=== PATIENT | female | born 1935 | race Caucasian/White ===

== ENCOUNTER 2016-07-02 07:27 | Inpatient (IN) | payer MEDICARE ==
[2016-07-02] VITALS (10 sets, daily range): BP systolic 98–142; BP diastolic 52–86
[~2016-07-02] VITALS: Ht 142.2 cm; Wt 100.0 kg
[~2016-07-02 07:27] MED LIST: ACETAMIN325 MG PO; ADLT ASA LOW81 MG PO; ARTANE2 MG PO; CIPROFLOXACN250 MG PO; CRESTOR10 MG PO; FLUOCINONIDE0.05 % EX; FUROSEMIDE40 MG PO; KLOR-CON 1010 ME1 PO; LISINOPRIL40 MG PO; LOPRESSOR 550 MG/TAB PO; METOPROLOL TART50 MG PO; MOTRIN200 MG PO; SPIRONOLACT25 MG PO; TRIHEXYPHENIDYL2 MG PO; XARELTO15 MG PO; ZOCOR10 MG PO
[2016-07-02 07:57] LABS: HEMATOCRIT 44.7 % (37.0-47.0); HEMOGLOBIN 14.1 g/dl (12.0-16.0); IMMATURE GRANULOCYTES 0.6 % (0.0-1.0); MEAN CELL VOLUME 95.7 fL CALC (80.0-100.0); MEAN CORPUSCULAR HGB 30.2 pG CALC (26.0-32.0); MEAN CORPUSCULAR HGB CONC 31.5 g/L CALC (32.0-36.0); NEUT# 9.58 thou/uL (2.00-7.15); RED BLOOD COUNT 4.67 mill/uL (4.20-5.60); RED CELL DISTRI WIDTH 14.6 % (11.5-15.5)
[2016-07-02] MEDS ORDERED: DIGITEK0.125 M1 PO (08:00)
[2016-07-02] MEDS ORDERED: SPIRONOLACT25 MG PO (08:02)
[2016-07-02] MEDS ORDERED: FUROSEMIDE40 MG PO (08:03)
[2016-07-02] MEDS ORDERED: TRIHEXYPHEN2 MG PO (08:05)
[2016-07-02] MEDS ORDERED: METOPROL TAR25 MG PO (08:06)
[2016-07-02 08:16] LABS: PROTHROMBIN TIME 10.7 SECONDS (9.0-12.5)
[2016-07-02 08:20] LABS: ALBUMIN 4.1 g/dL (3.2-5.0); ALKALINE PHOSPHATASE 77 u/l (38-126); AMYLASE 39 u/l (30-110); ANION GAP 16 (6-22 (CALC)); BUN 18 mg/dL (8-23); BUN/CREATININE RATIO 38 (12-20 (CALC)); CALCIUM 10.1 mg/dL (8.4-10.2); CARBON DIOXIDE 27 mmol/l (22-30); CHLORIDE 104 mmol/l (95-108); CREATININE 0.5 mg/dL (0.5-1.0); GFR > 60 ML/MIN (>=60 (CALC)); GFR FOR AFR.AMER. > 60 ML/MIN (>=60 (CALC)); GLUCOSE 128 mg/dL (82-115); LIPASE 53 u/l (23-300); POTASSIUM 4.3 mmol/l (3.5-5.1); SGOT/AST 16 u/l (9-36); SGPT/ALT 22 u/l (11-66); SODIUM 142 mmol/l (137-146); TOTAL PROTEIN 7.3 g/dL (6.3-8.2)
[2016-07-02 08:33] LABS: MYOGLOBIN 25 ng/mL (0 - 62)
[2016-07-02 09:13] LABS: URINE BILIRUBIN - DIPSTICK NEGATIVE (NEGATIVE); URINE BLOOD DIPSTICK TRACE-INTACT (NEGATIVE); URINE COLOR YELLOW; URINE GLUCOSE - DIPSTICK NEGATIVE (NEGATIVE); URINE KETONE TRACE mg/dL (NEGATIVE); URINE LEUK ESTERASE TRACE (NEGATIVE); URINE NITRITE - DIPSTICK NEGATIVE (Negative); URINE PH 5.5 (4.5-8.0); URINE PROTEIN - DIPSTICK TRACE mg/dL (NEG-TRACE); URINE SPECIFIC GRAVITY >=1.030; URINE UROBILINOGEN - DIPSTICK 0.2 E.U./dL (0.2)
[2016-07-02 09:23] LABS: URINE CLARITY SLIGHT CLOUDY
[2016-07-03] VITALS (12 sets, daily range): BP systolic 99–156; BP diastolic 57–83
[2016-07-03 04:50] LABS: HEMATOCRIT 40.2 % (37.0-47.0); HEMOGLOBIN 13.1 g/dl (12.0-16.0); IMMATURE GRANULOCYTES 0.7 % (0.0-1.0); MEAN CELL VOLUME 95.5 fL CALC (80.0-100.0); MEAN CORPUSCULAR HGB 31.1 pG CALC (26.0-32.0); MEAN CORPUSCULAR HGB CONC 32.6 g/L CALC (32.0-36.0); NEUT# 7.18 thou/uL (2.00-7.15); RED BLOOD COUNT 4.21 mill/uL (4.20-5.60); RED CELL DISTRI WIDTH 13.9 % (11.5-15.5)
[2016-07-03 04:58] LABS: ANION GAP 14 (6-22 (CALC)); BUN 17 mg/dL (8-23); BUN/CREATININE RATIO 38 (12-20 (CALC)); CALCIUM 9.4 mg/dL (8.4-10.2); CARBON DIOXIDE 27 mmol/l (22-30); CHLORIDE 105 mmol/l (95-108); CREATININE 0.4 mg/dL (0.5-1.0); GFR > 60 ML/MIN (>=60 (CALC)); GFR FOR AFR.AMER. > 60 ML/MIN (>=60 (CALC)); GLUCOSE 154 mg/dL (82-115); POTASSIUM 4.2 mmol/l (3.5-5.1); SODIUM 142 mmol/l (137-146)
[2016-07-04] VITALS (10 sets, daily range): BP systolic 91–155; BP diastolic 62–82
[2016-07-04 04:43] LABS: HEMATOCRIT 40.8 % (37.0-47.0); HEMOGLOBIN 12.9 g/dl (12.0-16.0); IMMATURE GRANULOCYTES 0.8 % (0.0-1.0); MEAN CELL VOLUME 96.5 fL CALC (80.0-100.0); MEAN CORPUSCULAR HGB 30.5 pG CALC (26.0-32.0); MEAN CORPUSCULAR HGB CONC 31.6 g/L CALC (32.0-36.0); NEUT# 6.31 thou/uL (2.00-7.15); RED BLOOD COUNT 4.23 mill/uL (4.20-5.60)
[2016-07-04 04:58] LABS: ANION GAP 13 (6-22 (CALC)); BUN 20 mg/dL (8-23); BUN/CREATININE RATIO 43 (12-20 (CALC)); CALCIUM 9.5 mg/dL (8.4-10.2); CARBON DIOXIDE 29 mmol/l (22-30); CHLORIDE 105 mmol/l (95-108); CREATININE 0.5 mg/dL (0.5-1.0); GFR > 60 ML/MIN (>=60 (CALC)); GFR FOR AFR.AMER. > 60 ML/MIN (>=60 (CALC)); GLUCOSE 140 mg/dL (82-115); POTASSIUM 4.3 mmol/l (3.5-5.1); SODIUM 143 mmol/l (137-146)
[2016-07-05 05:57] VITALS: BP 101/71
[2016-07-05 06:06] LABS: HEMATOCRIT 41.4 % (37.0-47.0); IMMATURE GRANULOCYTES 0.8 % (0.0-1.0); MEAN CELL VOLUME 97.4 fL CALC (80.0-100.0); MEAN CORPUSCULAR HGB 30.6 pG CALC (26.0-32.0); MEAN CORPUSCULAR HGB CONC 31.4 g/L CALC (32.0-36.0); NEUT# 5.56 thou/uL (2.00-7.15); RED BLOOD COUNT 4.25 mill/uL (4.20-5.60); RED CELL DISTRI WIDTH 13.9 % (11.5-15.5)
[2016-07-05 06:37] LABS: ANION GAP 13 (6-22 (CALC)); BUN 23 mg/dL (8-23); BUN/CREATININE RATIO 44 (12-20 (CALC)); CALCIUM 9.3 mg/dL (8.4-10.2); CARBON DIOXIDE 28 mmol/l (22-30); CHLORIDE 105 mmol/l (95-108); CREATININE 0.5 mg/dL (0.5-1.0); GFR > 60 ML/MIN (>=60 (CALC)); GFR FOR AFR.AMER. > 60 ML/MIN (>=60 (CALC)); GLUCOSE 114 mg/dL (82-115); POTASSIUM 4.3 mmol/l (3.5-5.1); SODIUM 142 mmol/l (137-146)
[2016-07-05 07:39] VITALS: BP 109/85
[2016-07-05 20:00] VITALS: BP 124/84
[2016-07-06 00:40] VITALS: BP 136/67
[2016-07-06 04:56] VITALS: BP 132/84
[2016-07-06 05:06] LABS: HEMOGLOBIN 13.2 g/dl (12.0-16.0); IMMATURE GRANULOCYTES 0.9 % (0.0-1.0); MEAN CELL VOLUME 97.2 fL CALC (80.0-100.0); MEAN CORPUSCULAR HGB 30.6 pG CALC (26.0-32.0); MEAN CORPUSCULAR HGB CONC 31.4 g/L CALC (32.0-36.0); NEUT# 5.26 thou/uL (2.00-7.15); RED BLOOD COUNT 4.32 mill/uL (4.20-5.60); RED CELL DISTRI WIDTH 13.6 % (11.5-15.5)
[2016-07-06 05:15] LABS: ANION GAP 11 (6-22 (CALC)); BUN 24 mg/dL (8-23); BUN/CREATININE RATIO 47 (12-20 (CALC)); CALCIUM 9.2 mg/dL (8.4-10.2); CARBON DIOXIDE 33 mmol/l (22-30); CHLORIDE 102 mmol/l (95-108); CREATININE 0.5 mg/dL (0.5-1.0); GFR > 60 ML/MIN (>=60 (CALC)); GFR FOR AFR.AMER. > 60 ML/MIN (>=60 (CALC)); GLUCOSE 106 mg/dL (82-115); MAGNESIUM 2.2 mg/dL (1.6-2.3); POTASSIUM 4.1 mmol/l (3.5-5.1); SODIUM 142 mmol/l (137-146)
[2016-07-06 09:56] VITALS: BP 132/84
[2016-07-06] MEDS ORDERED: PREDNISONE10 MG PO (10:39)
[2016-07-06] MEDS ORDERED: CORDARONE/200 MG/TAB PO ×2 (10:39)
[2016-07-06] MEDS ORDERED: NYSTATIN100000 UN1 TOP (10:39)
[2016-07-06] MEDS ORDERED: KEFLEX500 M1 PO (10:46)
== END 2016-07-06 12:31 | DRG 309 ==
LOC: ENPENDDIS → ED 07:27 → ED-I 10:45 → ED 11:02 → MS2 11:03 → ICU 11:03 → MS2 07-04 16:30
PROVIDERS: Emergency Medicine; ADMIT Internal Medicine; ATTEND Internal Medicine
DX: I48.0 Paroxysmal atrial fibrillation (principal); L03.114 Cellulitis of left upper limb; M10.9 Gout, unspecified; G20 Parkinson's disease; I10 Essential (primary) hypertension; M19.90 Unspecified osteoarthritis, unspecified site; E78.5 Hyperlipidemia, unspecified; E03.9 Hypothyroidism, unspecified
CPT/HCPCS: J1650